=== PATIENT | male | born 1975 | race Hispanic/Latino ===

== ENCOUNTER 2017-11-14 11:31 | Emergency (ER) | payer BC ==
--- NOTE | 2017-11-14 12:30 | ULT ---
VENOUS DOPPLER ULTRASOUND OF THE RIGHT LOWER EXTREMITY: HISTORY: Right leg pain. TECHNIQUE: Nair-scale ultrasound with color-flow and spectral Doppler imaging of the deep venous system of the r ight lower extremity was performed. FINDINGS: There is good flow, compression, and augmentation noted in the common femoral, femoral, deep femoral, popliteal, posterior tibial, and greater saphenous veins of the right lower extremity. Incidental n ote is made of an avascular cystic mass in the popliteal fossa, measuring 3.6 x 1.4 x 1.9 cm, consist ent with a Dunbar's cyst. IMPRESSION: 1. No evidence of deep venous thrombosis in the right lower extremity. 2. Dunbar's cyst. POS: [facility]
== END 2017-11-14 14:00 | disposition home or self-care (01) ==
LOC: EDSEX 11:31 → ERS 11:31
DX: M71.21 Synovial cyst of popliteal space [Baker], right knee (principal)